=== PATIENT | female | born 1935 | race African-American/Black ===

== ENCOUNTER → 2016-06-28 | Outpatient (CLI) | payer OTHER ==
[~2016-06-28] MED LIST: ADVAIR 250-501 EACH IH; ALB/IPRATROPIUM/1 E1 INH; ALBUTEROL2.5 MG/0.5 IH; ASPIRIN81 MG PO; ATORVASTATIN CA10 MG PO; BYETTA10 MCG/0.0 INJ; COZAAR100 MG PO; FLEXERIL10 M1 PO; FUROSEMIDE40 MG PO; KCL PO; LASIX20 MG PO; LOPRESSOR PO; METOPROLOL TAR25 MG PO; NEURONTIN100 MG PO; OS-CAL 500 + D500 MG PO; TRAVEL MOTION S25 MG PO; XOPENEX HFA15 GM NEB
--- NOTE | ~2016-06-28 | MR18 ---
[facility] A Service of [facility] & [facility] RADIOLOGY TEXT RESULTS PATIENT: SOFIYA SHIRLEY LOCATION: CMRI : 36 UNIT #: [id number] AGE: [address]: Radu Epps II, MD SEX: F ORDER DR: [id number] [facility] [address] [place], [place] [address] [id number] O MR#: [id number] Acc #: [id number] NAME: SOFIYA SHIRLEY : 1935 SEX: F STUDY DATE/TIME: 06/28/2016 10:36 UNIT: [facility] ROOM: STUDY DESCRIPTION: MR Brain Wo Contrast Attending Physician: Radu Epps II., M.D. Referring Physician: Radu Epps II., M.D. Ordering Physician: Radu Epps II., M.D. Primary Care Physician: [facility] REPORT This report is preliminary unless electronic signature is present. EXAM MRI of the brain without contrast dated 06/28/[address] head without contrast dated 04/02/2013 HISTORY Decrease in memory for about a month. TECHNIQUE Multisequence multiplanar imaging of the brain was obtained without contrast. FINDINGS There is a large mass noted in the sella and expanding it. It measured 2.0 x 2.6 x 2.1 cm. Lack of IV contrast limits evaluation. It abuts bilateral cavernous sinuses without occluding visualized portions of the cavernous ICA in these thicker slices. Scattered few nonspecific hyperintense T2 signal lesions are noted in bifrontal white matter. Thick slices through the pineal region is unremarkable. Mild degenerative changes are in the cervical spine. Mild S shaped nasal septal deviation is seen. Imaged paranasal sinuses are unremarkable. There is mild left mastoid mucosal thickening. Status post bilateral cataract surgery. IMPRESSION 1. 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 Post contrast imaging is suggested for further characterization. MRI of the sella with and without contrast would help. Differential consideration include pituitary macroadenoma and large cystic mass like Rathke cleft cyst, STS. [facility] A Service of [facility] & [facility] RADIOLOGY TEXT RESULTS PATIENT: SOFIYA SHIRLEY LOCATION: CMRI : 36 UNIT #: [id number] AGE: [address]: Radu Epps II, MD SEX: F ORDER DR: pars intermedia cyst. Craniopharyngioma is next in the differential consideration. 2. Scattered hyperintense T2 signal lesions are noted in the brain involving the white matter and mid right side of anterior zia. They are likely related to prior insults probably chronic ischemic change. 3. Attempts are made to contact Dr Radu Epps at 230 p.m. on 06/28/2016. Findings were discussed with him in the next 30 minutes. Dictated by... Sharron Ponce M.D. THIS IS AN ELECTRONICALLY VERIFIED REPORT Sharron Ponce M.D. at 06/29/2016 3:19 PM CPR/felipe TD: 06/28/2016 18:08 JOB #: [id number] [facility] REPORT Page 1 of 1 COPY
== END | disposition home or self-care (01) ==
LOC: CMRI 09:22
DX: R41.3 Other amnesia (principal); E23.6 Other disorders of pituitary gland; R90.89 Other abnormal findings on diagnostic imaging of central nervous system
CPT/HCPCS: 70551